=== PATIENT | male | born 1965 | race African-American/Black ===

== ENCOUNTER 2018-06-12 02:54 | Emergency (ER) | payer OTHER, BC ==
[2018-06-12] MEDS ORDERED: SUCRALFATE SUSP 1 GM/10 ML UDCUP PO ONE (03:11)
[2018-06-12] MEDS ORDERED: ONDANSETRON HCL INJ/PF 4 MG/2 ML SDV IV ONE (03:12)
[2018-06-12] MEDS ORDERED: FAMOTIDINE INJ/PF 20 MG/2 ML SDV IV ONE (03:12)
[2018-06-12] MEDS ORDERED: KETOROLAC TROMETHAMINE INJ/PF 30 MG/1 ML SDV IV ONE (03:12)
--- NOTE | 2018-06-12 03:14 | ER Document Report ---
ED General - General Chief Complaint: Chest Pain Stated Complaint: STOMACH PAIN Time Seen by Provider: 06/12/18 03:05 Notes: Patient is a 52-year-old male presents to the emergency department complaining of epigastric abdominal pain. Patient states the pain started around 2200 hrs. this evening while he was sitting around doing nothing. Patient and states that he ate a very large meal today which is somewhat abnormal for them. Patie nt states he initially thought it was indigestion which he took Rolaids for states that helped a little bit. Patient states he laid down to go to bed and the pain increased which is what presents him to the emergency room. Patient denies any pain in his chest, shortness of breath, diaphoresis. Patient also denies nausea, vomiting, diarrhea, dysuria, penile discharge or testicular swelling or erythema. Past medical history: Hypertension Medications: HCTZ, amlodipine, losartan Allergies: None Surgical history: None TRAVEL OUTSIDE OF THE [place] IN LAST 30 DAYS: No - Related Data Allergies/Adverse Reactions: No Known Allergies Allergy (Verified 06/12/18 03:21) Past Medical History - General Information source: Patient - Social History Smoking Status: Unknown if Ever Smoked Family History: Reviewed & Not Pertinent Review of Systems - Review of Systems Constitutional: No symptoms reported EENT: No symptoms reported Cardiovascular: No symptoms reported Respiratory: No symptoms reported Gastrointestinal: See HPI Genitourinary: See HPI Male Genitourinary: See HPI Musculoskeletal: No symptoms reported Skin: No symptoms reported Hematologic/Lymphatic: No symptoms reported Neurological/Psychological: No symptoms reported Physical Exam - Vital signs Vitals: Temp Pulse Resp BP Pulse Ox 97.9 F 88 16 163/72 H 98 06/12/18 03:03 06/12/18 03:03 06/12/18 03:03 06/12/18 03:03 06/12/18 03:03 - Notes Notes: GENERAL: Alert, interacts well. No acute distress. HEAD: Normocephalic, atraumatic. EYES: Pupils equal, round, and reactive to light. Extraocular movements intact. ENT: Oral mucosa moist, tongue midline. NECK: Full range of motion. Supple. Trachea midline. LUNGS: Clear to auscultation bilaterally, no wheezes, rales, or rhonchi. No respiratory distress. HEART: Regular rate and rhythm. No murmur ABDOMEN: Soft, Non-distended. Bowel sounds present in all 4 quadrants. Positive Oneil sign, no McBurney's point tenderness, minor epigastric tenderness upon palpation. EXTREMITIES: Moves all 4 extremities spontaneously. No edema, normal radial and dorsalis pedis pulses bilaterally. No cyanosis. BACK: no cervical, thoracic, lumbar midline tenderness. No saddle anesthesia, normal distal neurovascular exam. NEUROLOGICAL: Alert and oriented x3. Normal speech. cranial nerves II through XII grossly intact PSYCH: Normal affect, normal mood. SKIN: Warm, dry, normal turgor. No rashes or lesions noted. Course - Re-evaluation Re-evalutation: Ultrasound report is stating no signs of cholecystitis although patient's total and direct bilirubin are elevated along with his transaminases. Discussed this case with surgeon Dr. Herndon who states we do not have gastroenterology or access to ERCP so he would be uncomfortable taking out the patient's gallbladder. Discussed doing an MRCP to see if there is a stone and then he would be comfortable admitting the patient. Spoke with [facility] charge nurse who spoke with the milk house worker and informed us we do not have access to MRCP at this time. Discussed this with surgeon Dr. Herndon who states the patient should be transferred to another facility. Called [facility] transfer center for transfer at this time. Awaiting return phone call. 06/12/18 05:[address] Mari Cordoba who is a hospitalist at [facility]. He states the patient will be accepted to his service under Dr. Hussein. Patient is currently stable for transfer at this time, heart rate 78, blood pressure 151/81, respiratory rate 20, pulse ox 96% on room air. - Vital Signs Vital signs: Temp Pulse Resp BP Pulse Ox 97.9 F 88 20 151/81 H 96 06/12/18 03:03 06/12/18 03:03 06/12/18 05:24 06/12/18 05:24 06/12/18 05:24 - Laboratory Result Diagrams: 06/12/18 03:14 06/12/18 03:14 Laboratory results interpreted by me: 06/12/18 06/12/18 06/12/18 03:14 03:14 03:54 Seg Neutrophils % 80.8 H Lymphocytes % 11.9 L Glucose 140 H Calcium 10.3 H Total Bilirubin 2.6 H Direct Bilirubin 1.6 H AST 485 H ALT 302 H Total Protein 8.3 H Albumin 5.1 H Urine Urobilinogen 2.0 H Discharge - Discharge Clinical Impression: Hyperbilirubinemia Cholelithiasis Qualifiers: Cholelithiasis location: gallbladder Cholecystitis presence: without cholecystitis Biliary obstruction: with biliary obstruction Qualified Code(s): K80.21 - Calculus of gallbladder without cholecystitis with obstruction Disposition: [facility] Referrals: GAYE ARMENTA MD [COMMUNITY BASED STAFF] - Follow up as needed
[2018-06-12 03:24] LABS: ABSOLUTE EOSINOPHILS # (AUTO) 0.1 10^3/uL (0.0-0.6); ABSOLUTE LYMPHOCYTES (AUTO) 1.1 10^3/uL (0.5-4.7); ABSOLUTE MONOCYTES (AUTO) 0.5 10^3/uL (0.1-1.4); ABSOLUTE NEUT (AUTO) 7.4 10^3/uL (1.7-8.2); BASOPHILS % (AUTO) 0.5 % (0-2); EOSINOPHILS % (AUTO) 1.3 % (0-6); HEMATOCRIT 43.4 % (37.9-51.0); HEMOGLOBIN 14.6 g/dL (13.5-17.0); LYMPHOCYTES % (AUTO) 11.9 % (13-45); MEAN CORPUSCULAR HEMOGLOBIN 29.3 pg (27.0-33.4); MEAN CORPUSCULAR HGB CONC 33.7 g/dL (32.0-36.0); MEAN CORPUSCULAR VOLUME 87 fl (80-97); MONOCYTES % (AUTO) 5.5 % (3-13); PLATELET COUNT 267 10^3/uL (150-450); RED BLOOD COUNT 4.99 10^6/uL (4.35-5.55); RED CELL DISTRIBUTION WIDTH 12.3 % (11.5-14.0); SEGMENTED NEUTROPHILS % (AUTO) 80.8 % (42-78); TOTAL CELLS COUNTED % (AUTO) 100 %; WHITE BLOOD COUNT 9.1 10^3/uL (4.0-10.5)
[2018-06-12 03:50] LABS: ALANINE AMINOTRANSFERASE 302 U/L (21-72); ALBUMIN 5.1 g/dL (3.5-5.0); ALKALINE PHOSPHATASE 87 U/L (38-126); ANION GAP 9 (5-19); ASPARTATE AMINO TRANSFERASE 485 U/L (17-59); BILIRUBIN,DIRECT 1.6 mg/dL (0.0-0.4); BILIRUBIN,TOTAL 2.6 mg/dL (0.2-1.3); BLOOD UREA NITROGEN 14 mg/dL (7-20); CALCIUM 10.3 mg/dL (8.4-10.2); CARBON DIOXIDE 29 mmol/L (22-30); CHLORIDE 99 mmol/L (98-107); GLUCOSE 140 mg/dL (75-110); LIPASE 89.7 U/L (23-300); SODIUM 137.4 mmol/L (137-145); TOTAL PROTEIN 8.3 g/dL (6.3-8.2)
[2018-06-12 04:09] LABS: APPEARANCE,URINE CLEAR; BILIRUBIN,URINE NEGATIVE (NEGATIVE); COLOR,URINE YELLOW; GLUCOSE, URINE NEGATIVE (NEGATIVE); KETONES,URINE NEGATIVE (NEGATIVE); LEUKOCYTE ESTERASE,URINE NEGATIVE (NEGATIVE); NITRITE,URINE NEGATIVE (NEGATIVE); PROTEIN,URINE NEGATIVE (NEGATIVE); URINE SPECIFIC GRAVITY 1.011
--- NOTE | 2018-06-12 04:12 | RADIOLOGY REPORT (SQ) ---
EXAM DESCRIPTION: US ABDOMEN LIMITED COMPLETED DATE/TME: 06/12/2018 03:11 CLINICAL HISTORY: 52 years, Male, right upper quadrant COMPARISON: None. TECHNIQUE: Limited right upper quadrant ultrasound LIMITATIONS: None. FINDINGS: Echogenic appearance to the liver consistent with fatty infiltrative change. Multiple mobile, shadowing stones throughout the gallbladder lumen. No gallbladder wall thickening or pericholecystic fluid. Negative sonographic Oneil sign. CBD measures 3.8 mm. Pancreas not well seen likely due to bowel gas. The visualized abdominal aorta and right kidney are unremarkable. No ascites. IMPRESSION: Cholelithiasis. No sonographic evidence for cholecystitis. Fatty infiltrative change to the liver copyright 2010 [employer]- All Rights Reserved
[2018-06-12] MEDS ORDERED: FENTANYL CITRATE INJ/PF 100 MCG/2 ML AMPUL IV ONE (04:25)
[2018-06-12 07:24] VITALS: BP 117/72
--- NOTE | 2018-06-12 15:41 | EKG REPORT ---
SEVERITY:- ABNORMAL ECG - SINUS RHYTHM PROBABLE LEFT ATRIAL ABNORMALITY PROBABLE LEFT VENTRICULAR HYPERTROPHY : Confirmed by: Veena Harmon 12-Jun-2018 15:40:58
== END 2018-06-12 07:51 | disposition short-term general hospital (02) ==
LOC: ER 02:54
DX: K80.21 Calculus of gallbladder without cholecystitis with obstruction (principal); E80.6 Other disorders of bilirubin metabolism; R07.9 Chest pain, unspecified; R10.13 Epigastric pain; I10 Essential (primary) hypertension; Z79.899 Other long term (current) drug therapy
CPT/HCPCS: 93005; 99285; 96374; 96375; 36415; 83690; 85025; 80053; 81001; 76705; 93010; J3010; J1885; J2405; S0028

== ENCOUNTER 2019-11-17 10:46 | Emergency (ER) | payer OTHER, BC ==
--- NOTE | 2019-11-17 10:59 | ER Document Report ---
ED Medical Screen (RME) - General Chief Complaint: Leg Pain Stated Complaint: LEFT LEG PAIN Time Seen by Provider: 11/17/19 10:55 Primary Care Provider: RASHARD MARIN [Primary Care Provider] - Follow up as needed Mode of Arrival: Ambulatory Information source: Patient Notes: 54-year-old male patient presents emergency department chief complaint of pain behind his left knee. Patient reports pain has been there for about 3 days and is progressively getting worse. He states the pain is a throbbing deep inside. There is no pain upon palpation of the skin. He initially thought this was a gout flareup although he states his gout flareups are usually in his toe and are tender to palpation. Patient denies any recent travel, denies any history of DVT or PE. There is no obvious unilateral leg swelling. I have greeted and performed a rapid initial assessment of this patient. A comprehensive ED assessment and evaluation of the patient, analysis of test results and completion of the medical decision making process will be conducted by additional ED providers. I have specifically instructed the patient or family members with the patient to immediately return to any nursing staff should anything change in the patient's condition or with their chief complaint. TRAVEL OUTSIDE OF THE [place] IN LAST 30 DAYS: No - Related Data Allergies/Adverse Reactions: No Known Allergies Allergy (Verified 11/17/19 10:55) Past Medical History Renal/ Medical History: Denies: Hx Peritoneal Dialysis Past Surgical History: Reports: Hx Cholecystectomy Doctor's Discharge - Discharge Referrals: RASHARD MARIN [Primary Care Provider] - Follow up as needed
[2019-11-17] MEDS ORDERED: HYDROCODONE/ACETAMINOPHEN 5-325 MG TABLET PO ONE (11:25)
--- NOTE | 2019-11-17 11:34 | ER Document Report ---
ED Extremity Problem, Lower - General Chief Complaint: Leg Pain Stated Complaint: LEFT LEG PAIN Time Seen by Provider: 11/17/19 10:55 [facility] Provider: [facility] [[facility]] - Follow up as needed Mode of Arrival: Ambulatory Notes: HPI: 54-year-old male who presents today with the onset 4 days ago atraumatic pain behind his left knee. He denies any swelling to his leg, weakness or numbness, discoloration, chest pain or shortness of breath. No recent trips or travel. Patient has no history of DVT/PE. ROS: See HPI All other review of systems reviewed and otherwise negative Reviewed vital signs and nursing note as charted by RN. PHYSICAL EXAM: CONSTITUTIONAL: Alert and oriented and responds appropriately to questions. Well-appearing; well-nourished HEAD: Normocephalic; atraumatic CARD: Regular rate and rhythm; no murmurs; symmetric distal pulses RESP: Normal chest excursion without splinting or tachypnea; breath sounds clear and equal bilaterally ABD/GI: Normal bowel sounds; non-distended; soft, non-tender; no palpable organomegaly or masses BACK: The back appears normal and is non-tender to palpation EXT: Normal ROM in all joints; some mild tenderness behind the left knee. No obvious swelling. No specific tenderness or discoloration to the calf or leg. Strong distal pulses with good capillary refill with normal reflexes SKIN: No acute lesions noted NEURO: CN 2-12 intact; 5/5 bilateral upper and lower extremity strength with sensation intact to light touch PSYCH: The patient's mood and manner are appropriate. Grooming and personal h ygiene are appropriate. TRAVEL OUTSIDE OF THE [place] IN LAST 30 DAYS: No - Related Data Allergies/Adverse Reactions: No Known Allergies Allergy (Verified 11/17/19 10:55) Home Medications: Atorvastatin 10mg QHS. Amlodipine 10mg daily. Losartan 100mg daily. [id number] daily. potassium 10 mEq daily Past Medical History - General Information source: Patient - Social History Smoking Status: Never Smoker Chew tobacco use (# tins/day): No Frequency of alcohol use: Occasional Drug Abuse: None Family History: Reviewed & Not Pertinent Patient has homicidal ideation: No Renal/ Medical History: Denies: Hx Peritoneal Dialysis Past Surgical History: Reports: Hx Cholecystectomy Physical Exam - Vital signs Vitals: Temp Pulse Resp BP Pulse Ox 98.2 F 84 16 162/82 H 98 11/17/19 10:54 11/17/19 10:54 11/17/19 10:54 11/17/19 10:54 11/17/19 10:54 Course - Re-evaluation Re-evalutation: 11/17/19 11:34 Given the above history and physical examination I will order an x-ray of the knee to evaluate for any possible avulsion fractures as well as order a Doppler ultrasound to evaluate for DVT. Patient has no neurologic deficits, calf pain or swelling, or tenderness or shortening of the Achilles. 11/17/19 14:16 Imaging as recorded. Greater than 6 cm in length despite being superficial. No extension into the deep veins. I will obtain basic labs and provide Eliquis w ith strict return precautions. 11/17/19 15:12 Labs as recorded. Creatinine and platelet level as recorded. I will start the patient on Eliquis 10 mg twice daily for 7 days transitioning to 5 mg twice a day after that. [facility]. - Vital Signs Vital signs: Temp Pulse Resp BP Pulse Ox 98.3 F 86 12 146/68 H 97 11/17/19 13:52 11/17/19 13:52 11/17/19 13:52 11/17/19 13:52 11/17/19 13:52 - Laboratory Result Diagrams: 11/17/19 14:27 11/17/19 14:27 Laboratory results interpreted by me: 11/17/19 14:27 Sodium 134.6 L Glucose 140 H Discharge - Discharge Clinical Impression: Femoral vein thrombosis, left Condition: Good Disposition: AGAINST MEDICAL ADVICE Additional Instructions: Come back immediately for any increased pain to the leg, swelling of the leg, fevers, vomiting, weakness or numbness, or any other acute problems. Please make sure that you follow-up with the primary care physician as discussed. Tell them that you had a left superficial venous clot greater than 6 cm in length with pain with no extension into the deep vessels. Prescriptions: Apixaban [Eliquis 5 mg Tablet] 5 mg PO BID 30 Days #74 tablet Referrals: [facility] [Primary Care Provider] - Follow up as needed
--- NOTE | 2019-11-17 12:08 | RADIOLOGY REPORT (SQ) ---
EXAM DESCRIPTION: KNEE LEFT 4 VIEW IMAGES COMPLETED DATE/TIME: 11/17/2019 10:33 am REASON FOR STUDY: 3; left knee pain behind the knee. No known injury. COMPARISON: None. NUMBER OF VIEWS: Four views. TECHNIQUE: AP, lateral, and both oblique radiographic images acquired of the left knee. LIMITATIONS: None. FINDINGS: MINERALIZATION: Normal. BONES: No acute fracture or dislocation. No worrisome bone lesions. JOINT: No effusion. SOFT TISSUES: No soft tissue swelling. No radio-opaque foreign body. OTHER: No other significant finding. IMPRESSION: No radiographic abnormality of the left knee. TECHNICAL DOCUMENTATION: JOB ID: [id number] 2010 [employer]- All Rights Reserved Reading location - IP/workstation name: [email or web address]
[2019-11-17 14:35] LABS: ABSOLUTE EOSINOPHILS # (AUTO) 0.1 10^3/uL (0.0-0.6); ABSOLUTE LYMPHOCYTES (AUTO) 1.3 10^3/uL (0.5-4.7); ABSOLUTE MONOCYTES (AUTO) 0.4 10^3/uL (0.1-1.4); ABSOLUTE NEUT (AUTO) 3.7 10^3/uL (1.7-8.2); BASOPHILS % (AUTO) 0.6 % (0-2); EOSINOPHILS % (AUTO) 2.3 % (0-6); HEMATOCRIT 39.7 % (37.9-51.0); HEMOGLOBIN 13.5 g/dL (13.5-17.0); LYMPHOCYTES % (AUTO) 24.1 % (13-45); MEAN CORPUSCULAR HEMOGLOBIN 29.1 pg (27.0-33.4); MEAN CORPUSCULAR HGB CONC 34.1 g/dL (32.0-36.0); MEAN CORPUSCULAR VOLUME 86 fl (80-97); MONOCYTES % (AUTO) 6.6 % (3-13); PLATELET COUNT 290 10^3/uL (150-450); RED BLOOD COUNT 4.64 10^6/uL (4.35-5.55); RED CELL DISTRIBUTION WIDTH 12.4 % (11.5-14.0); SEGMENTED NEUTROPHILS % (AUTO) 66.4 % (42-78); TOTAL CELLS COUNTED % (AUTO) 100 %; WHITE BLOOD COUNT 5.6 10^3/uL (4.0-10.5)
--- NOTE | 2019-11-17 14:36 | RADIOLOGY REPORT (SQ) ---
EXAM DESCRIPTION: VENOUS UNILATERAL LOWER IMAGES COMPLETED DATE/TIME: 11/17/2019 2:24 pm REASON FOR STUDY: L posterior leg pain COMPARISON: None. TECHNIQUE: Dynamic and static pretty scale and color images acquired of the left leg venous system. Se lected spectral images acquired with additional compression and augmentation maneuvers. The contralat eral common femoral vein and saphenofemoral junction were also imaged. Images stored on PACS. LIMITATIONS: None. FINDINGS: COMMON FEMORAL: Normal phasicity, compression and augmentation. No visualized echogenic ma terial on pretty scale. No defects on color images. FEMORAL: Normal compression and augmentation. No visualized echogenic material on pretty scale. No defe cts on color images. POPLITEAL: Normal compression, augmentation. No visualized echogenic material on pretty scale. No defec ts on color images. CALF VESSELS: Normal compression, augmentation. No visualized echogenic material on pretty scale. No de fects on color images. GSV and SSV: Noncompressible left greater saphenous vein from mid thigh to mid calf. ANY DEEP VENOUS INSUFFICIENCY: Not evaluated. ANY EVIDENCE OF POPLITEAL CYST: No. OTHER: No other significant finding. CONTRALATERAL COMMON FEMORAL VEIN AND SAPHENOFEMORAL JUNCTION: Normal phasicity, compression and augmentation. No visualized echogenic material on pretty scale. No de fects on color images. IMPRESSION: Noncompressible left greater saphenous vein from mid thigh to mid calf. No popliteal or femoral thrombus identified. TECHNICAL DOCUMENTATION: JOB ID: [id number] 2010 [employer]- All Rights Reserved Reading location - IP/workstation name: [email or web address]
[2019-11-17 14:52] LABS: ANION GAP 9 (5-19); BLOOD UREA NITROGEN 17 mg/dL (7-20); CALCIUM 9.8 mg/dL (8.4-10.2); CARBON DIOXIDE 28 mmol/L (22-30); CHLORIDE 98 mmol/L (98-107); GLUCOSE 140 mg/dL (75-110); POTASSIUM 3.9 mmol/L (3.6-5.0)
[2019-11-17] MEDS ORDERED: APIXABAN 5 MG TABLET PO ONE (15:11)
[2019-11-17 15:33] VITALS: BP 150/80
== END 2019-11-17 15:32 | disposition home or self-care (01) ==
LOC: ER 10:46
DX: I82.412 Acute embolism and thrombosis of left femoral vein (principal); M79.605 Pain in left leg; Z90.49 Acquired absence of other specified parts of digestive tract
CPT/HCPCS: 36415; 80048; 85025; 93971; 99284